=== PATIENT | female | born 1945 | race Caucasian/White ===

== ENCOUNTER 2018-07-20 07:02 | Day surgery (SDC) | payer BC ==
[2018-07-19 16:03] VITALS: BMI 23.8
[2018-07-20 08:59] VITALS: TEMP 97.5
[2018-07-20 10:04] VITALS: BP 130/72; PULSE 56
--- NOTE | 2018-07-22 10:44 | PATH ---
Surgical Pathology Report Patient Name: AZRA SCHULER [facility]. Rec. #: [id number] /Age/Gender: 1945 (Age: 72) / F Account: [id number] Location: U-ENDOSCOPY Taken: 07/20/2018 Received: 07/20/2018 Reported: 07/22/2018 Physicians: Nikko Lira M.D. Specimen(s) Received A: 2ND PORTION DUODENUM AND BULB B: ANTRUM AND BODY C: GE JUNCTION D: CECUM POLYP E: ASCENDING COLON POLYP (X2) Clinical History Rectal bleeding, cancer screening, abdominal pain,r/o ulcer Postop diagnosis: Hiatal hernia, GERD, diverticulosis, colon polyps Final Diagnosis A. DUODENUM SECOND PORTION AND BULB, BIOPSY: MILD CHRONIC DUODENITIS. B. ANTRUM AND BODY, BIOPSY: MILD CHRONIC GASTRITIS. IMMUNOSTAIN IS NEGATIVE FOR H. PYLORI ORGANISMS. C. GE JUNCTION, BIOPSY: HYPERPLASTIC ESOPHAGEAL (SQUAMOUS) MUCOSA WITH INTRAEPITHELIAL EOSINOPHILS, CONSISTENT WITH REFLUX ESOPHAGITIS. NO COLUMNAR EPITHELIUM/INTESTINAL METAPLASIA IS IDENTIFIED. D. CECUM, POLYP, POLYPECTOMY: TUBULAR ADENOMA. E. ASCENDING COLON, POLYPS (X2), BIOPSY: FRAGMENTS OF HYPERPLASTIC POLYP (S). Electronically Signed Jeanette Swartz M.D. Gross Description A. Received in formalin, labeled, "duodenum second portion and bulb" are three pieces of dark gonzalez tissue ranging from 0.3-0.4 cm in greatest dimension. Entirely submitted in one cassette. B. Received in formalin, labeled, "antrum and body" are five pieces of light gonzalez tissue ranging from 0.2-0.3 cm in greatest dimension. Entirely submitted in one cassette. C. received in formalin, labeled, "GE junction" is one piece of light gonzalez tissue measuring 0.4 cm in greatest dimension. Entirely submitted in one cassette. D. Received in formalin, labeled, "polyp cecum" is one piece of light gonzalez, tissue, measuring 0.4 cm in greatest dimension. Entirely submitted in one cassette. E. Received in formalin, labeled, "polyps, descending colon x 2" are seven pieces of light gonzalez tissue ranging from 0.1-0.2 cm in greatest dimension. Entirely submitted in one cassette. AE/07/20/2018 ebram/07/20/2018
== END 2018-07-20 09:54 | disposition home or self-care (01) ==
LOC: JASU-ENDO 07:02
PROVIDERS: ATTEND Internal Medicine Gastroenterology
PROC: 0DBH8ZX Excision of Cecum, Via Natural or Artificial Opening Endoscopic, Diagnostic (ICD-10-PCS; 2018-07-20)
PROC: 0DB48ZX Excision of Esophagogastric Junction, Via Natural or Artificial Opening Endoscopic, Diagnostic (ICD-10-PCS; 2018-07-20)
PROC: 0DB68ZX Excision of Stomach, Via Natural or Artificial Opening Endoscopic, Diagnostic (ICD-10-PCS; 2018-07-20)
PROC: 0DBK8ZX Excision of Ascending Colon, Via Natural or Artificial Opening Endoscopic, Diagnostic (ICD-10-PCS; principal; 2018-07-20 08:00)
DX: Z12.11 Encounter for screening for malignant neoplasm of colon (principal); D12.2 Benign neoplasm of ascending colon; D12.0 Benign neoplasm of cecum; K57.30 Diverticulosis of large intestine without perforation or abscess without bleeding; K64.8 Other hemorrhoids; K21.0 Gastro-esophageal reflux disease with esophagitis; K44.9 Diaphragmatic hernia without obstruction or gangrene
CPT/HCPCS: 88305-TC; 88342-TC

== ENCOUNTER 2019-03-22 06:25 | Day surgery (SDC) | payer BC ==
[2019-03-13 16:36] VITALS: BMI 22.4
[2019-03-22] MEDS: TROPICAMIDE 1% OPHTH SOLN 15 ML BOTTLE ONE ×3 (07:00→07:10)
[2019-03-22] MEDS: PHENYLEPHRINE 2.5% OPHTH SOLN 15 ML BOTTLE ONE ×3 (07:00→07:10)
[2019-03-22] MEDS: CIPROFLOXACIN 0.3% EYE DROPS 5 ML BOTTLE ONE ×3 (07:00→07:10)
[2019-03-22] MEDS: CYCLOPENTOLATE 2% OPHTH SOLN 2 ML BOTTLE ONE ×3 (07:00→07:10)
[2019-03-22] MEDS ORDERED: LIDOCAINE 1% P/F 10 MG/ML VIAL ONE (07:16)
[2019-03-22] MEDS ORDERED: TETRACAINE 0.5% OPHTH SOLN 2 ML BOTTLE ONE (07:17)
[2019-03-22] MEDS ORDERED: BSS (NA/CA/MG/K) BALANCED SALT SOLUTION OPHTH SOLN 15 ML BOTTLE ONE (07:17)
[2019-03-22] MEDS ORDERED: NEO/POLYMYX B SULF/DEXAMETH OPHTHALMIC 5ML BOTTLE ONE (07:17)
[2019-03-22] MEDS ORDERED: CARBACHOL 0.01% INTRA-OCULAR 1.5 ML VIAL ONE (07:17)
[2019-03-22] MEDS ORDERED: EPINEPHrine/PF 1 MG/1 ML (1:1,000) AMPULE ONE (07:19)
[2019-03-22] MEDS ORDERED: MIDAZOLAM HCL 2 MG/2 ML SINGLE DOSE VIAL ONE (08:03)
[2019-03-22 08:43] VITALS: TEMP 98.5
[2019-03-22 09:18] VITALS: BP 101/61; PULSE 68
--- NOTE | 2019-03-22 15:59 | OP ---
DATE OF OPERATION: 03/22/2019 OPERATIVE PROCEDURE: Lens Phacoemulsification with Posterior Chamber Intraocular Lens Placement, Right Eye. PREOPERATIVE DIAGNOSIS: Visually Significant Cataract of Right Eye. POSTOPERATIVE DIAGNOSIS: Visually Significant Cataract of Right Eye. SURGEON: Harvey Jones MD ANESTHESIA: MAC ANESTHESIOLOGIST: PROCEDURE: The patient was brought to the operating room and placed under monitored anesthesia care by Anesthesia. A drop of Tetracaine was then placed over the right eye. The patient was then prepped and draped in the usual sterile manner. A speculum was then placed over the right eye. The eye was then well irrigated with copious amounts of BSS (balanced salt solution). The operating microscope was then moved into position. A paracentesis was performed using a 15 degree blade. At this point 0.5 mL of 1% preservative free-lidocaine was injected into the anterior chamber. Amvisc plus was then injected into the anterior chamber. A clear corneal incision was then formed using a 2.2 mm keratome. A capsulorrhexis was then performed in a continuous circular fashion beginning with a cystotome completed with an Utratas forceps. Hydrodissection was then performed using BSS on a cannula. The phaco probe was then introduced through the corneal wound and the cataract was removed using the phaco chop technique. Approximately 3 seconds of absolute phaco time was used. The remaining cortex was then removed using irrigation and aspiration with an I/A probe. The capsule was then filled with regular Amvisc and the capsule was noted to be intact. A previously selected foldable posterior chamber intraocular lens was then injected into the capsule through the corneal wound using a lens injector. It was then dialed into position using a Sinskey hook. The Amvisc was then removed using irrigation and aspiration. Miostat was then injected through the paracentesis to constrict the pupil. The paracentesis and corneal wound were then hydrated and noted to be watertight. A drop of Maxitrol was then placed over the eye. The speculum was removed and clear shield was taped over the eye. The patient tolerated the procedure well and there were no surgical complications. The patient was asked to follow up in my office the next day. HARVEY JONES M.D. [id number]
== END 2019-03-22 09:15 | disposition home or self-care (01) ==
LOC: FASU 06:25
PROVIDERS: ATTEND Ophthalmology
PROC: 08RJ3JZ Replacement of Right Lens with Synthetic Substitute, Percutaneous Approach (ICD-10-PCS; principal; 2019-03-22 08:20)
DX: H26.8 Other specified cataract (principal)

== ENCOUNTER 2019-04-05 06:30 | Day surgery (SDC) | payer BC ==
[2019-03-30 11:25] VITALS: BMI 22.4
[2019-04-05] MEDS: CYCLOPENTOLATE 2% OPHTH SOLN 2 ML BOTTLE ONE ×3 (06:45→06:55)
[2019-04-05] MEDS: CIPROFLOXACIN 0.3% EYE DROPS 5 ML BOTTLE ONE ×3 (06:45→06:55)
[2019-04-05] MEDS: PHENYLEPHRINE 2.5% OPHTH SOLN 15 ML BOTTLE ONE ×3 (06:45→06:55)
[2019-04-05] MEDS: TROPICAMIDE 1% OPHTH SOLN 15 ML BOTTLE ONE ×3 (06:45→06:55)
[2019-04-05] MEDS ORDERED: BSS (NA/CA/MG/K) BALANCED SALT SOLUTION OPHTH SOLN 15 ML BOTTLE ONE (07:16)
[2019-04-05] MEDS ORDERED: CARBACHOL 0.01% INTRA-OCULAR 1.5 ML VIAL ONE (07:16)
[2019-04-05] MEDS ORDERED: TETRACAINE 0.5% OPHTH SOLN 2 ML BOTTLE ONE (07:16)
[2019-04-05] MEDS ORDERED: LIDOCAINE 1% P/F 10 MG/ML VIAL ONE (07:16)
[2019-04-05] MEDS ORDERED: EPINEPHrine/PF 1 MG/1 ML (1:1,000) AMPULE ONE (07:16)
[2019-04-05] MEDS ORDERED: NEO/POLYMYX B SULF/DEXAMETH OPHTHALMIC 5ML BOTTLE ONE (07:17)
[2019-04-05] MEDS ORDERED: MIDAZOLAM HCL 2 MG/2 ML SINGLE DOSE VIAL ONE (07:41)
[2019-04-05 08:51] VITALS: BP 112/69; PULSE 57; TEMP 98.1
--- NOTE | 2019-04-05 14:40 | OP ---
DATE OF OPERATION: 04/05/2019 OPERATIVE PROCEDURE: Lens Phacoemulsification with Posterior Chamber Intraocular Lens Placement, Right Eye PREOPERATIVE DIAGNOSIS: Visually Significant Cataract of Right Eye POSTOPERATIVE DIAGNOSIS: Visually Significant Cataract of Right Eye SURGEON: Harvey Jones M.D. ANESTHESIA: MAC PROCEDURE: The patient was brought to the operating room and placed under monitored anesthesia care by Anesthesia. A drop of Tetracaine was then placed over the right eye. The patient was then prepped and draped in the usual sterile manner. A speculum was then placed over the right eye. The eye was then well irrigated with copious amounts of BSS (balanced salt solution). The operating microscope was then moved into position. A paracentesis was performed using a 15 degree blade. At this point 0.5 mL of 1% preservative free-lidocaine was injected into the anterior chamber. Amvisc plus was then injected into the anterior chamber. A clear corneal incision was then formed using a 2.2 mm keratome. A capsulorrhexis was then performed in a continuous circular fashion beginning with a cystotome completed with an Utratas forceps. Hydrodissection was then performed using BSS on a cannula. The phaco probe was then introduced through the corneal wound and the cataract was removed using the phaco chop technique. Approximately 3 seconds of absolute phaco time was used. The remaining cortex was then removed using irrigation and aspiration with an I/A probe. The capsule was then filled with regular Amvisc and the capsule was noted to be intact. A previously selected foldable posterior chamber intraocular lens was then injected into the capsule through the corneal wound using a lens injector. It was then dialed into position using a Sinskey hook. The Amvisc was then removed using irrigation and aspiration. Miostat was then injected through the paracentesis to constrict the pupil. The paracentesis and corneal wound were then hydrated and noted to be water tight. A drop of Maxitrol was then placed over the eye. The speculum was removed and clear shield was taped over the eye. The patient tolerated the procedure well and there were no surgical complications. The patient was asked to follow up in my office the next day. HARVEY JONES M.D. [id number]
== END 2019-04-05 09:13 | disposition home or self-care (01) ==
LOC: FASU 06:30
PROVIDERS: ATTEND Ophthalmology
PROC: 08RJ3JZ Replacement of Right Lens with Synthetic Substitute, Percutaneous Approach (ICD-10-PCS; principal; 2019-04-05 08:26)
DX: H26.8 Other specified cataract (principal)

== ENCOUNTER 2023-01-22 14:53 | Emergency (ER) | payer OTHER, BC ==
[2023-01-22 15:06] VITALS: BP 145/85; PULSE 75; RESP 18; TEMP 97.8; BMI 19.4
[2023-01-22 16:18] LABS: HEMATOCRIT 41.3 % (32.4-45.2); HEMOGLOBIN 13.8 G/dL (10.7-15.3); MCH 32.1 pg (25.7-33.7); MCHC 33.4 g/dl (32.0-36.0); MEAN PLT VOLUME 7.9 fl (7.5-11.1); PLATELET COUNT 181.7 10^3/uL (134-434); RDW 14.3 % (11.6-15.6); WHITE BLOOD COUNT 5.1 10^3/uL (4.0-10.8)
[2023-01-22 16:42] LABS: ALBUMIN 4.4 g/dl (3.4-5.0); CALCIUM 9.7 mg/dl (8.5-10.1); CREATININE 0.8 mg/dl (0.6-1.3); POTASSIUM 4.1 mmol/L (3.5-5.1); TOT PROT 6.6 g/dl (6.4-8.2)
[2023-01-22 16:48] LABS: PLATELET ESTIMATE ADEQUATE
== END 2023-01-22 18:45 | disposition home or self-care (01) ==
LOC: FER 14:53
DX: M54.50 Low back pain, unspecified (principal); R10.9 Unspecified abdominal pain; N20.0 Calculus of kidney
CPT/HCPCS: 36415; 74176-TC; 80053; 81003; 81015; 85025; 87086; 99284-25